=== PATIENT | male | born 1955 | race Caucasian/White ===

== ENCOUNTER 2017-09-22 13:00 | Day surgery (SDC) | payer OTHER, SELFPAY ==
[2017-09-22 13:38] VITALS: BP 172/82; PULSE 110; RESP 18; TEMP 36.8; O2SAT 95; BMI 33.0
--- NOTE | 2017-09-22 14:10 | HMH.PMPROC ---
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 He is doing well with his intrathecal morphine/bupivacaine pain pump. He is currently going at 7 mg per day. He is doing well with his pain pump however he does have increased pain with increased activity.. He also has a spinal cord stimulator in place. We will refill his pump and Increase his intrathecal infusion to 8 mg per day of intrathecal morphine/bupivacaine. He does have an antalgic gait. Motor strength of the lower extremities is 5/5. There is no gross sensory deficit. Procedure Details:: Pain pump refill informed consent was obtained and the risks and benefits of the procedure was explained to the patient. The patient was taken to the procedure room. The pump was interrogated. The area over the pump was prepped using ChloraPrep. The pump was accessed with a 22-gauge needle. Approximately 3 mL's of the intrathecal solution was withdrawn and discarded. The pump was then refilled with 20 mL's of intrathecal morphine 30 mg per male plus bupivacaine 30 mg/mL. The pump was interrogated and the infusion was increased to 8 mg per day. The patient tolerated the procedure well with no complication. Plan and Disposition:: We will follow-up with him at his next pump refill. His estimated USAMA is 5 months so he is due for battery change at this summer. His stimulator is also due for change of the summer as well.
[2017-09-22 14:15] VITALS: BP 183/91; PULSE 89; RESP 18; O2SAT 98
[2017-09-22 14:16] VITALS: BP 181/78; PULSE 69; RESP 16
[2017-09-22 14:25] VITALS: BP 146/83; PULSE 87; RESP 18; O2SAT 95
--- NOTE | 2017-09-25 16:38 | PC.PHONENOTE ---
called in Rx for Lyrica 200mg TID with 2 refills to pt's pharmacy
== END 2017-09-22 14:30 | disposition home or self-care (01) ==
LOC: SC.PAINP 13:02
PROVIDERS: Family Provider Social Worker; PCP Social Worker; Visit Provider Anesthesiology
DX: M96.1 Postlaminectomy syndrome, not elsewhere classified; M51.16 Intervertebral disc disorders with radiculopathy, lumbar region
CPT/HCPCS: 62370

== ENCOUNTER 2017-11-28 09:45 | Day surgery (SDC) | payer OTHER, SELFPAY ==
[2017-11-28 09:54] VITALS: BP 163/90; PULSE 114; RESP 19; TEMP 37.3; O2SAT 96; BMI 30.1
[2017-11-28 10:10] VITALS: BP 181/85; PULSE 85; RESP 20; O2SAT 96
[2017-11-28 10:12] VITALS: BP 152/96; PULSE 100; RESP 20; O2SAT 96
--- NOTE | 2017-11-28 10:16 | HMH.PMPROC ---
- Procedure Date: 11/28/17 Time: 10:16 Anesthesiologist:: Claudia Lester APRN Complications:: None Pre-procedure Diagnosis:: Degenerative disc disease of the lumbar spine with lumbar postlaminectomy syndrome Post-procedure Diagnosis:: Same Indications for Procedure:: Patient is a pleasant 61 white male who we are treating for very to degenerative disc disease of the lumbar spine with postlaminectomy syndrome. Patient is doing well on his intrathecal morphine bupivacaine pain pump. He is currently going on an infusion of 8 mg per day. He denies any side effects to this medication. Patient also has spinal cord stimulator in place. He is currently scheduled for surgery this month for replacement of intrathecal pain pump along with spinal cord stimulator. Patient is also interested in home refills. 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 The patient was taken to the procedure room where noninvasive monitoring was placed including noninvasive blood pressure cuff and pulse oximeter. Patient's pump was interrogated. The area over the pump was cleansed with chlorhexidine as a cleansing solution. In sterile fashion the pump was accessed with a 22-gauge needle. Approximately 2 mL's mL's were removed of the pump solution and discarded appropriately. The pump was then refilled with 20 mL's of intrathecal morphine 30 mg/mL plus bupivacaine 30 mg/mL. The needle was withdrawn and a bandage was placed over the puncture site. The infusion rate was 8 mg/day. The patient tolerated the procedure well. Plan and Disposition:: Patient has been instructed to call the office if he has any issues prior to his implantation of his new flowonix pain pump and his new stimulator battery. I will follow-up with the patient after his surgery. Also write an order her a prescription for an AFO for the patient. Patient states he utilizes this to help him ambulate and increase his functionality. This note was dictated using voice recognition software and may contain errors or omissions
--- NOTE | 2017-11-28 10:19 | P.PCN_ITS ---
- Procedure Date: 11/28/17 Time: 10:16 Anesthesiologist:: Claudia Lester APRN Complications:: None Pre-procedure Diagnosis:: Degenerative disc disease of the lumbar spine with lumbar postlaminectomy syndrome Post-procedure Diagnosis:: Same Indications for Procedure:: Patient is a pleasant 61 white male who we are treating for very to degenerative disc disease of the lumbar spine with postlaminectomy syndrome. Patient is doing well on his intrathecal morphine bupivacaine pain pump. He is currently going on an infusion of 8 mg per day. He denies any side effects to this medication. Patient also has spinal cord stimulator in place. He is currently scheduled for surgery this month for replacement of intrathecal pain pump along with spinal cord stimulator. Patient is also interested in home refills. 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 The patient was taken to the procedure room where noninvasive monitoring was placed including noninvasive blood pressure cuff and pulse oximeter. Patient's pump was interrogated. The area over the pump was cleansed with chlorhexidine as a cleansing solution. In sterile fashion the pump was accessed with a 22-gauge needle. Approximately 2 mL's mL's were removed of the pump solution and discarded appropriately. The pump was then refilled with 20 mL's of intrathecal morphine 30 mg/mL plus bupivacaine 30 mg/ mL. The needle was withdrawn and a bandage was placed over the puncture site. The infusion rate was 8 mg/day. The patient tolerated the procedure well. Plan and Disposition:: Patient has been instructed to call the office if he has any issues prior to his implantation of his new flowonix pain pump and his new stimulator battery. I will follow-up with the patient after his surgery. Also write an order her a prescription for an AFO for the patient. Patient states he utilizes this to help him ambulate and increase his functionality. This note was dictated using voice recognition software and may contain errors or omissions
[2017-11-28 10:30] VITALS: BP 147/79; PULSE 100; RESP 18; O2SAT 96
[2017-11-28 13:17] LABS: Amphetamine/Metha Screen,Urine Negative ng/mL (<1000); Barbiturates Screen,Urine Negative ng/mL (<200); Benzodiazepines Screen,Urine Positive ng/mL (200); Cannabinoid Screen,Urine Negative ng/mL (<50); Cocaine Screen,Urine Negative ng/g (<300); Methadone Screen,Urine Negative ng/mL (<300); Opiate Screen,Urine Positive ng/mL (<300); Phencyclidine Screen,Urine Negative ng/mL (<25)
[2017-12-06 19:09] LABS: Codeine Negative (Cutoff=100); Hydrocodone Negative (Cutoff=100); Hydromorphone Negative (Cutoff=100); Morphine Positive (.)
[2017-12-07 21:09] LABS: Opiates Positive (.)
== END 2017-11-28 10:30 | disposition home or self-care (01) ==
LOC: SC.PAINP 09:46
PROVIDERS: Family Provider Social Worker; PCP Social Worker; Visit Provider Clinical Nurse Specialist Family Health
DX: M51.36 Other intervertebral disc degeneration, lumbar region (principal); M96.1 Postlaminectomy syndrome, not elsewhere classified
CPT/HCPCS: 80305; 80361; 80365; 95991; G0480

== ENCOUNTER → 2018-01-16 10:29 | Outpatient (POV) | payer OTHER, SELFPAY ==
[2018-01-16 12:47] VITALS: BP 141/80; PULSE 85; RESP 18; O2SAT 98; BMI 36.5
--- NOTE | 2018-01-16 13:22 | HMH.PAINSOAP ---
[facility] Pain Management SOAP Note Subjective:: Patient is a pleasant 62-year-old white male who presents today for follow-up after intrathecal pain pump and neurostimulator generator changes. Patient is doing extremely well he rates his pain a 4 out of 10 today. He states this is the first time he has ever been below an 8 in years. During the stitch removal process patient intrathecal pain pump was slightly exposed. Patient was sent to ER to have stitches replaced. Patient started on Bactrim prophylactically for [address] pebbles lr. We will follow-up with the patient in 1 week and reassess him at that time. Patient was educated risk of infection and signs and symptoms. At this time the area is clean dry intact there is no redness. Patient has not had any fevers or exposure of the pump prior to the stitch removal. Patient is doing well otherwise all other stitches were removed. ROS General: no recent weight change, no fever, no sleep disturbances Respiratory: no cough, no shortness of air, no recurring pulmonary infections Cardiovascular/Peripheral Vascular: No chest pain, No palpitations, no edema, no shortness of breath. Gastrointestinal: no incontinence, normal bowel movements reported Genitourinary: no incontinence Musculoskeletal: Back pain, leg pain Psychiatric: normal mood/ affect Neurological: [denies weakness in extremities], [denies balance issues] Objective:: Physical Exam General: Alert and oriented x3, no acute distress, pleasant and cooperative, [on room air] Lungs: Resps E/U, Symmetrical chest expansion, Eyes: PERRL Musculoskeletal: Flexion and extension of lumbar spine somewhat guarded secondary to pain, deep tendon reflexes normal, strength in upper and lower extremities [5/5], antalgic gait noted Neurological: speech clear, 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 Assessment:: Degenerative disc disease of the lumbar spine with lumbar radiculopathy symptoms Plan:: I will see the patient back in 1 week. Patient has been instructed to notify the office if he has any issues prior to his appointment. Patient understands. Patient is to begin Bactrim today. This note was dictated using voice recognition software and may contain errors or omissions
--- NOTE | 2018-01-16 13:26 | P.CONS_ITS ---
[facility] Pain Management SOAP Note Subjective:: Patient is a pleasant 62-year-old white male who presents today for follow-up after intrathecal pain pump and neurostimulator generator changes. Patient is doing extremely well he rates his pain a 4 out of 10 today. He states this is the first time he has ever been below an 8 in years. During the stitch removal process patient intrathecal pain pump was slightly exposed. Patient was sent to ER to have stitches replaced. Patient started on Bactrim prophylactically for [address] pebbles lr. We will follow-up with the patient in 1 week and reassess him at that time. Patient was educated risk of infection and signs and symptoms. At this time the area is clean dry intact there is no redness. Patient has not had any fevers or exposure of the pump prior to the stitch removal. Patient is doing well otherwise all other stitches were removed. ROS General: no recent weight change, no fever, no sleep disturbances Respiratory: no cough, no shortness of air, no recurring pulmonary infections Cardiovascular/Peripheral Vascular: No chest pain, No palpitations, no edema, no shortness of breath. Gastrointestinal: no incontinence, normal bowel movements reported Genitourinary: no incontinence Musculoskeletal: Back pain, leg pain Psychiatric: normal mood/ affect Neurological: [denies weakness in extremities], [denies balance issues] Objective:: Physical Exam General: Alert and oriented x3, no acute distress, pleasant and cooperative, [ on room air] Lungs: Resps E/U, Symmetrical chest expansion, Eyes: PERRL Musculoskeletal: Flexion and extension of lumbar spine somewhat guarded secondary to pain, deep tendon reflexes normal, strength in upper and lower extremities [5/5], antalgic gait noted Neurological: speech clear, typewriter aligner equal, no gross sensory deficits Skin: Small half an inch long opening mid incision line pain pump visible sterile dressing immediately applied patient taken to ER for stitching. Assessment:: Degenerative disc disease of the lumbar spine with lumbar radiculopathy symptoms Plan:: I will see the patient back in 1 week. Patient has been instructed to notify the office if he has any issues prior to his appointment. Patient understands. Patient is to begin Bactrim today. This note was dictated using voice recognition software and may contain errors or omissions
== END ==
PROVIDERS: Family Provider Social Worker; PCP Social Worker; Visit Provider Clinical Nurse Specialist Family Health
DX: M54.16 Radiculopathy, lumbar region (principal)
CPT/HCPCS: 99212